=== PATIENT | female | born 1940 | race Caucasian/White ===

== ENCOUNTER 2017-07-01 14:00 | Day surgery (SDC) | payer OTHER ==
[~2017-07-01 14:00] MED LIST: FOLIC ACID1 MG PO; HYDRALAZINE HCL25 MG PO; LISINOPRIL40 MG PO; SYNTHROID88 MCG PO; [UNRECOGNIZED DRUG - OTHER] PO
== END 2017-07-01 16:00 | disposition home or self-care (01) ==
LOC: CIR.AMB 14:00
DX: N99.3 Prolapse of vaginal vault after hysterectomy (principal); L91.8 Other hypertrophic disorders of the skin